=== PATIENT | male | born 1960 | race Caucasian/White ===

== ENCOUNTER 2025-03-17 06:05 | Day surgery (SDC) | payer OTHER, SELFPAY ==
[2025-03-13 14:55] VITALS: BMI 33.5
--- NOTE | 2025-03-17 06:41 | EKG_ITS ---
[place] [id number] [place] [id number] Test Date: 2025-03-17 Pat Name: Thad Krishna Department: Room: Gender: Male Hatchery Worker: Veronica COSTA : 1960 Requested By: Order Number: [id number] Reading MD: Gael Bertrand Measurements Intervals [place] Rate: 121 P: [place]: QRS: 0 QRSD: 98 T: 84 QT: 334 QTc: 474 Interpretive Statements Atrial fibrillation with rapid ventricular response Possible Anterior infarct , age undetermined Electronically Signed On 03-18-2025 13:31:26 PST by Gael Bertrand
[2025-03-17 07:11] VITALS: BP 129/90; PULSE 118; RESP 16; TEMP 36.8; O2SAT 98
[2025-03-17 07:13] LABS: Add Manual Diff / Slide Review NO; Hematocrit 39.3 % (41-53); Hemoglobin 13.4 g/dL (13.5-17.5); Lymphocytes Absolute Auto 1100 /uL (1100-4500); Mean Corpuscular HGB Conc 34.0 % (30-36); Mean Corpuscular Hemoglobin 32.2 PG (26-34); Mean Corpuscular Volume 94.7 fL (80-100); Platelet Count 247 X10^3/uL (150-400)
[2025-03-17 07:27] LABS: Blood Urea Nitrogen 26 mg/dL (9-20); Calcium 8.9 mg/dL (8.4-10.2); Carbon Dioxide 22 mmol/L (22-32); Chloride 109 mmol/L (98-107); Estimated Glomerular Filt Rate > 60 mL/min (>60); Glucose 96 mg/dL (70-99); HEMOLYSIS < 15 (0-50); Potassium 4.5 mmol/L (3.4-5.1); Sodium 140 mmol/L (137-145)
[2025-03-17 09:12] VITALS: BP 104/74; PULSE 74; RESP 16; TEMP 36.2; O2SAT 98
--- NOTE | 2025-03-17 09:15 | P.PCN_ITS ---
Procedures Date/Time Date of procedure: 03/17/25 Time of procedure: 09:16 General Procedure description: Elective Cardioversion: Indication: Atrial fibrillation Clinical history: 65 old male with a history new onset atrial fibrillation, tachycardia induced cardiomyopathy. He came for elective cardioversion after 1 month of anticoagulation. Consent: Patient was explained risks benefits and alternatives of the procedure and informed signed consent was obtained and placed in the chart. Procedure: Patient was brought to the procedure room. Anesthesia and registered nurse was present room. Patient was moderate conscious sedation by anesthesiologist present in the room. Heart rate blood pressure and airway was managed by anesthesia in the room. Registered nurse present in the room did preprocedure time-out. Labs were reviewed. I placed the defibrillation pads on his chest. IV propofol was administered by anesthesiologist present in the room, after making sure that patient was in deep conscious sedation 200 joules o f biphasic synchronized DC current was administered. Patient converted to sinus rhythm and maintain sinus rhythm. Impression: Successful DC cardioversion Complications: none
[2025-03-17 09:17] VITALS: BP 110/60; PULSE 78; RESP 16; TEMP 36.2; O2SAT 98
[2025-03-17 09:22] VITALS: BP 112/70; PULSE 89; RESP 16; TEMP 36.2; O2SAT 94
--- NOTE | 2025-03-17 09:22 | EKG_ITS ---
[address] [address] Test Date: 2025-03-17 Pat Name: Thad Krishna Department: Room: Gender: Male [employer] Operator: Veronica COSTA : 1960 Requested By: Order Number: [id number] Reading MD: Gael Bertrand Measurements Intervals [place] Rate: 77 P: 49 [place]: 148 QRS: 4 QRSD: 98 T: 69 QT: 416 QTc: 470 Interpretive Statements Sinus rhythm with premature atrial complexes Cannot rule out Anterior infarct , age undetermined Electronically Signed On 03-18-2025 13:32:17 PST by Gael Bertrand
[2025-03-17 09:27] VITALS: BP 112/70; PULSE 68; RESP 16; TEMP 36.2; O2SAT 95
[2025-03-17 09:41] VITALS: BP 124/74; PULSE 68; RESP 16; TEMP 36.2; O2SAT 94
== END 2025-03-17 09:54 | disposition home or self-care (01) ==
PROVIDERS: PCP Family Medicine; Referring Provider Family Medicine; Visit Provider Internal Medicine Cardiovascular Disease
PROC: 5A2204Z Restoration of Cardiac Rhythm, Single (ICD-10-PCS; CPT 92960; principal; 2025-03-17 07:45)
DX: I48.11 Longstanding persistent atrial fibrillation (principal); I50.21 Acute systolic (congestive) heart failure; I42.8 Other cardiomyopathies; J45.909 Unspecified asthma, uncomplicated; R06.83 Snoring
CPT/HCPCS: 92960; 80048; 85025; 93005; J2704